=== PATIENT | male | born 1945 | race Two or more races ===

== ENCOUNTER 2024-10-17 07:05 | Day surgery (SDC) | payer OTHER ==
[2024-10-17] MEDS ORDERED: DIPHENHYDRAMINE HCL 50 MG/ML VIAL 1ML IV ONE (09:00)
[2024-10-17] MEDS ORDERED: fentaNYL CITRATE 50 MCG/ML AMPUL IV PUSH ONE (09:00)
[2024-10-17] MEDS ORDERED: MIDAZOLAM HCL 2 MG/2 ML VIAL IV ONE (09:00)
== END 2024-10-17 11:00 | disposition home or self-care (01) ==
LOC: AMB-ENDOS 07:05
PROVIDERS: ATTEND Surgery
DX: D12.7 Benign neoplasm of rectosigmoid junction (principal); K57.30 Diverticulosis of large intestine without perforation or abscess without bleeding

== ENCOUNTER 2024-11-25 05:20 | Day surgery (SDC) | payer OTHER ==
[~2024-11-25] VITALS: Ht 243.8 cm; Wt 5.0 kg
[~2024-11-25 05:20] MED LIST: ATACAND16 MG; CARVEDILOL ER40 MG; PRILOSEC OTC20 MG PO
== END 2024-11-25 07:30 | disposition home or self-care (01) ==
LOC: CIR.AMB 05:20 → SURH 05:20 → O/R 05:20 → SURH 07:00 → CIR.AMB 07:30 → O/R 07:30 → SURH 12:15 → EDSTATUS 12:15
PROVIDERS: ATTEND Surgery
DX: C19 Malignant neoplasm of rectosigmoid junction (principal); Z53.09 Procedure and treatment not carried out because of other contraindication

== ENCOUNTER 2024-12-25 13:13 | Inpatient (IN) | payer OTHER ==
[~2024-12-25] VITALS: Ht 243.8 cm; Wt 67.1 kg
[2025-01-06] MEDS ORDERED: CEFTRIAXONE SODIUM 2,000 MG VIAL ONE (06:31)
[2025-01-06] MEDS ORDERED: METRONIDAZOLE/SODIUM CHLORIDE 500 MG/100 ML PIGGYBACK IV ONE (06:31)
[2025-01-06] MEDS ORDERED: BUPIVACAINE HCL/MPF 0.5% 30ML VIAL ONE (07:53)
[2025-01-06] MEDS ORDERED: LIDOCAINE HCL 1%/EPINEPHRINE 20ML VIAL IJ ONE (07:53)
[2025-01-06] MEDS ORDERED: SUGAMMADEX SODIUM 200 MG/2 ML VIAL IV ONE (09:32)
[2025-01-06] MEDS ORDERED: MORPHINE SULFATE 4 MG/ML CARTRIDGE IV PRN (15:30)
[2025-01-06] MEDS ORDERED: FUROsemide 20 MG/2 ML VIAL IV ONE (17:00)
[2025-01-06] MEDS ORDERED: ENALAPRILAT DIHYDRATE 1.25 MG/ML VIAL IV ONE (17:00)
[2025-01-07 07:04] LABS: HEMATOCRIT 44.4 % (39.0-48.0); HEMOGLOBIN 15.1 g/dL (13-16.00); MEAN CELL VOLUME 94.5 fL (80.0-100.00); MEAN CORPUSCULAR HEMOGLOBIN 32.2 pg (27.00-32.0); PLATELET COUNT 188 K/uL (150-450); RED CELL DISTRIBUTION WIDTH 12.8 % (11.5-14.5)
[2025-01-07 07:37] LABS: ALBUMIN 2.8 gm/dL (3.4-5.0); CALCIUM 8.8 mg/dL (8.5-10.1); CREATININE SERUM 0.99 mg/dL (0.70-1.30); GFR 73.3; PHOSPHOROUS 3.9 mg/dL (2.5-4.9); POTASSIUM 3.62 mEq/L (3.5-5.1)
[2025-01-07] MEDS ORDERED: FAMOTIDINE/PF 20 MG/2 ML VIAL IV SCH (09:00)
[2025-01-07] MEDS ORDERED: ENOXAPARIN SODIUM 40 MG/0.4 ML SYRINGE SUBCUTANEO SCH ×2 (09:00→17:00)
[2025-01-07] MEDS ORDERED: TAMSULOSIN HCL 0.4 MG CAP PO ONE (10:32)
[2025-01-07] MEDS ORDERED: HYDROCHLOROTHIAZIDE 12.5 MG CAPSULE PO ONE (10:32)
[2025-01-07] MEDS ORDERED: ACETAMINOPHEN 500 MG GEL..CAP PO ONE (10:32)
[2025-01-07] MEDS ORDERED: CANDESARTAN CILEXETIL 32 MG TABLET PO ONE (10:32)
[2025-01-07] MEDS ORDERED: CARVEDILOL 12.5 MG TABLET PO ONE (10:32)
[2025-01-07] MEDS ORDERED: FAMOTIDINE/PF 20 MG/2 ML VIAL ONE (10:33)
[2025-01-07] MEDS ORDERED: ENOXAPARIN SODIUM 40 MG/0.4 ML SYRINGE SUBCUTANEO ONE (10:33)
[2025-01-07] MEDS ORDERED: ENALAPRILAT DIHYDRATE 1.25 MG/ML VIAL IV PRN (11:00)
[2025-01-07] MEDS ORDERED: ALBUTEROL SULFATE 3 ML/2.5 MG AMPUL.NEB IH SCH (12:00)
[2025-01-07] MEDS ORDERED: ONDANSETRON HCL 2 MG/ML VIAL IV PRN (12:30)
[2025-01-07] MEDS ORDERED: ACETAMINOPHEN 500 MG GEL..CAP PO SCH (14:00)
[2025-01-07 16:00] VITALS: BP 153/76; O2SAT 96
[2025-01-07] MEDS ORDERED: TAMSULOSIN HCL 0.4 MG CAP PO SCH (17:00)
[2025-01-07] MEDS ORDERED: GABAPENTIN 300 MG CAPSULE PO SCH (17:00)
[2025-01-07] MEDS ORDERED: CARVEDILOL 12.5 MG TABLET PO SCH (21:00)
[2025-01-08 01:06] VITALS: BP 103/60; O2SAT 96
[2025-01-08 07:47] LABS: HEMATOCRIT 47.4 % (39.0-48.0); MEAN CELL VOLUME 95.4 fL (80.0-100.00); MEAN CORPUSCULAR HEMOGLOBIN 32.1 pg (27.00-32.0); MEAN CORPUSCULAR HGB CONC 33.7 g/dl (32.0-36.0); PLATELET COUNT 215 K/uL (150-450); RED BLOOD COUNT 4.98 M/uL (4.00-6.00); RED CELL DISTRIBUTION WIDTH 13.2 % (11.5-14.5)
[2025-01-08] MEDS ORDERED: PIPERACILLIN/TAZOBACTAM SODIUM 3.375 GM in DEXTROSE 5 % IN WATER 100 ML IV SCH (07:54)
[2025-01-08 08:10] LABS: CALCIUM 9.1 mg/dL (8.5-10.1); CREATININE SERUM 1.15 mg/dL (0.70-1.30); GFR 61.66; MAGNESIUM 1.5 mg/dL (1.8-2.4); PHOSPHOROUS 3.1 mg/dL (2.5-4.9); POTASSIUM 3.75 mEq/L (3.5-5.1)
[2025-01-08 08:52] VITALS: BP 126/71; O2SAT 96
[2025-01-08] MEDS ORDERED: CANDESARTAN CILEXETIL 32 MG TABLET PO SCH (09:00)
[2025-01-08] MEDS ORDERED: HYDROCHLOROTHIAZIDE 12.5 MG CAPSULE PO SCH (09:00)
[2025-01-08] MEDS ORDERED: MAGNESIUM SULFATE IN WATER 50 ML IV NR (09:15)
[2025-01-08 11:02] LABS: PH,URINE 5.5 (5.0-8.0); URINE APPEARANCE Clear; URINE BILIRRUBIN Negative (NEGATIVE); URINE BLOOD Large; URINE COLOR Yellow; URINE GLUCOSE Negative (NEGATIVE); URINE KETONE Trace (NEGATIVE); URINE LEUKOCYTE Negative; URINE NITRATE Negative; URINE PROTEIN 30 (NEGATIVE); URINE UROBILINOGEN 0.2 E.U./dl
[2025-01-08 11:06] LABS: URINE EPITHELIAL CELLS 6.1 uL (0.0-38.8); URINE RBC 346.9 uL (0.0-20.8); URINE WBC 3.6 uL (0.0-23.2)
[2025-01-08 11:52] LABS: URINE BACTERIA 2.4 uL (0.0-1933)
[2025-01-08 11:53] LABS: URINE CAST 0.73 uL (0.0-1.40)
[2025-01-08 16:27] VITALS: BP 103/64; O2SAT 95
[2025-01-08] MEDS ORDERED: DEXTROSE 5%-WATER 100ML IV.SOLN ONE (23:49)
[2025-01-09] VITALS: BP 92/59; O2SAT 96
[2025-01-09 07:05] LABS: HEMATOCRIT 40.5 % (39.0-48.0); HEMOGLOBIN 14.2 g/dL (13-16.00); MEAN CELL VOLUME 93.7 fL (80.0-100.00); MEAN CORPUSCULAR HEMOGLOBIN 32.9 pg (27.00-32.0); MEAN CORPUSCULAR HGB CONC 35.1 g/dl (32.0-36.0); PLATELET COUNT 190 K/uL (150-450); RED BLOOD COUNT 4.32 M/uL (4.00-6.00); RED CELL DISTRIBUTION WIDTH 13.6 % (11.5-14.5)
[2025-01-09 08:00] VITALS: BP 79/46; O2SAT 96
[2025-01-09 11:00] VITALS: BP 86/52; O2SAT 97
[2025-01-09] MEDS ORDERED: 0.9 % SODIUM CHLORIDE 1,000 ML IV SCH (11:15)
[2025-01-09 11:35] LABS: ALBUMIN 1.9 gm/dL (3.4-5.0); BILIRUBIN TOTAL 1.23 mg/dL (0.3-1.2); CALCIUM 8.6 mg/dL (8.5-10.1); CREATININE SERUM 2.73 mg/dL (0.70-1.30); GFR 22.74; GLOBULINA 3.3 G/DL (2.4-3.5); POTASSIUM 3.93 mEq/L (3.5-5.1); TOTAL PROTEIN 5.2 gm/dL (6.4-8.2)
[2025-01-09] MEDS ORDERED: DEXTROSE 50 % IN WATER 0.5 G/ML DISP.SYRIN IV ONE (14:00)
[2025-01-09] MEDS ORDERED: DEXTROSE 5 % AND 0.9 % NACL 1,000 ML IV SCH ×2 (14:00→18:30)
[2025-01-09 16:54] VITALS: BP 93/57; O2SAT 96
[2025-01-09] MEDS ORDERED: PIPERACILLIN/TAZOBACTAM SODIUM 2.25 GM VIAL IV SCH (17:00)
[2025-01-09] MEDS ORDERED: AA 5 % NO.6/DEXTROSE 15 % 2,000 ML CENTRAL SCH (17:00)
[2025-01-09] MEDS ORDERED: ENOXAPARIN SODIUM 30 MG/0.3 ML SYRINGE SUBCUTANEO SCH (17:00)
[2025-01-09] MEDS ORDERED: NOREPINEPHRINE BITARTRATE 8 MG in DEXTROSE 5 % IN WATER 250 ML IV SCH (18:15)
[2025-01-09] MEDS ORDERED: DEXTROSE 5 %-0.45 % SOD CHLORD 1,000 ML IV SCH (18:15)
[2025-01-09 21:45] VITALS: BP 101/55; O2SAT 98
[2025-01-09 23:00] VITALS: BP 115/71; O2SAT 98
[2025-01-10] VITALS (15 sets, daily range): BP systolic 99–142; BP diastolic 50–67; O2SAT 97–100
[2025-01-10 07:25] LABS: HEMATOCRIT 37.1 % (39.0-48.0); MEAN CELL VOLUME 94.8 fL (80.0-100.00); MEAN CORPUSCULAR HEMOGLOBIN 33.1 pg (27.00-32.0); PLATELET COUNT 206 K/uL (150-450); RED BLOOD COUNT 3.91 M/uL (4.00-6.00); RED CELL DISTRIBUTION WIDTH 13.7 % (11.5-14.5)
[2025-01-10 07:57] LABS: ALBUMIN 1.5 gm/dL (3.4-5.0); CALCIUM 7.8 mg/dL (8.5-10.1); CREATININE SERUM 2.51 mg/dL (0.70-1.30); GFR 25.05; MAGNESIUM 2.1 mg/dL (1.8-2.4); PHOSPHOROUS 2.8 mg/dL (2.5-4.9); POTASSIUM 3.8 mEq/L (3.5-5.1)
[2025-01-10] MEDS ORDERED: FAMOtidine 20 MG TABLET PO SCH (09:00)
[2025-01-10] MEDS ORDERED: PIPERACILLIN/TAZOBACTAM SODIUM 2.25 GM VIAL IV SCH (09:00)
[2025-01-10] MEDS ORDERED: FAMOTIDINE/PF 20 MG in 0.9 % SODIUM CHLORIDE 8 ML IV PUSH SCH (21:00)
[2025-01-11 04:00] VITALS: BP 143/63; O2SAT 100
[2025-01-11 07:18] VITALS: BP 160/69; O2SAT 98
[2025-01-11 08:11] LABS: HEMATOCRIT 36.4 % (39.0-48.0); HEMOGLOBIN 12.2 g/dL (13-16.00); MEAN CELL VOLUME 95.6 fL (80.0-100.00); MEAN CORPUSCULAR HGB CONC 33.5 g/dl (32.0-36.0); PLATELET COUNT 205 K/uL (150-450); RED BLOOD COUNT 3.81 M/uL (4.00-6.00); RED CELL DISTRIBUTION WIDTH 13.6 % (11.5-14.5)
[2025-01-11 08:37] LABS: ALBUMIN 1.6 gm/dL (3.4-5.0); BILIRUBIN TOTAL 0.52 mg/dL (0.3-1.2); CALCIUM 8.2 mg/dL (8.5-10.1); CREATININE SERUM 1.29 mg/dL (0.70-1.30); GFR 54.01; GLOBULINA 3.1 G/DL (2.4-3.5); MAGNESIUM 2.1 mg/dL (1.8-2.4); POTASSIUM 3.09 mEq/L (3.5-5.1); TOTAL PROTEIN 4.7 gm/dL (6.4-8.2)
[2025-01-11 09:12] LABS: PHOSPHOROUS 1.6 mg/dL (2.5-4.9)
[2025-01-11] MEDS ORDERED: POTASSIUM CHLORIDE IN WATER 100 ML IV NR (10:15)
[2025-01-11 11:59] VITALS: BP 136/64; O2SAT 100
[2025-01-11] MEDS ORDERED: POTASSIUM PHOS,M-BASIC-D-BASIC 15 MM in 0.9 % SODIUM CHLORIDE 250 ML IV NR (12:00)
[2025-01-11] MEDS ORDERED: LORazepam 2 MG/ML VIAL IV NR (12:17)
[2025-01-11] MEDS ORDERED: LORazepam 2 MG/ML VIAL IV PUSH STA (14:56)
[2025-01-11 15:24] VITALS: BP 158/78; O2SAT 100
[2025-01-11] MEDS ORDERED: LORazepam 2 MG/ML VIAL IV PRN (17:15)
[2025-01-11 20:00] VITALS: BP 157/67; O2SAT 100
[2025-01-11 23:00] VITALS: BP 171/73; O2SAT 100
[2025-01-12 04:00] VITALS: BP 167/69; O2SAT 100
[2025-01-12 07:12] VITALS: BP 153/69; O2SAT 99
[2025-01-12 07:24] LABS: HEMATOCRIT 35.3 % (39.0-48.0); HEMOGLOBIN 11.9 g/dL (13-16.00); MEAN CELL VOLUME 95.1 fL (80.0-100.00); MEAN CORPUSCULAR HGB CONC 33.6 g/dl (32.0-36.0); PLATELET COUNT 181 K/uL (150-450); RED BLOOD COUNT 3.71 M/uL (4.00-6.00); RED CELL DISTRIBUTION WIDTH 13.7 % (11.5-14.5)
[2025-01-12 07:46] LABS: INR 1.02; PARTIAL THROMBOPLASTIN TIME 28.8 SECONDS (22.0-34.0); PROTHROMBIN TIME 11.1 SECONDS (9.0-11.5)
[2025-01-12 08:04] LABS: ALBUMIN 1.6 gm/dL (3.4-5.0); BILIRUBIN TOTAL 0.75 mg/dL (0.3-1.2); CREATININE SERUM 1.05 mg/dL (0.70-1.30); GFR 68.49; GLOBULINA 3.1 G/DL (2.4-3.5); POTASSIUM 3.03 mEq/L (3.5-5.1); TOTAL PROTEIN 4.7 gm/dL (6.4-8.2)
[2025-01-12] MEDS ORDERED: THIAMINE HCL 100 MG TABLET PO SCH (09:00)
[2025-01-12] MEDS ORDERED: hydrALAZINE HCL 20 MG VIAL IV PRN (09:00)
[2025-01-12] MEDS ORDERED: FOLIC ACID 1 MG TABLET PO SCH (09:00)
[2025-01-12] MEDS ORDERED: POTASSIUM CHLORIDE 20MEQ/100ML H2O PB IV NR (09:30)
[2025-01-12 10:47] LABS: UREA CLEARANCE 50.8 ML/MIN
[2025-01-12 12:19] VITALS: BP 116/58; O2SAT 100
[2025-01-12 15:10] VITALS: BP 142/65; O2SAT 100
[2025-01-12] MEDS ORDERED: ENOXAPARIN SODIUM 40 MG/0.4 ML SYRINGE SUBCUTANEO SCH (17:00)
[2025-01-12 20:00] VITALS: BP 135/61; O2SAT 100
[2025-01-12] MEDS ORDERED: FUROsemide 20 MG/2 ML VIAL IV ONE (22:30)
[2025-01-12 23:44] VITALS: BP 159/70; O2SAT 99
[2025-01-13] VITALS (8 sets, daily range): BP systolic 103–160; BP diastolic 55–77; O2SAT 99–100
[2025-01-13 06:22] LABS: HEMATOCRIT 36.5 % (39.0-48.0); HEMOGLOBIN 12.4 g/dL (13-16.00); MEAN CELL VOLUME 94.2 fL (80.0-100.00); MEAN CORPUSCULAR HEMOGLOBIN 32.1 pg (27.00-32.0); MEAN CORPUSCULAR HGB CONC 34.1 g/dl (32.0-36.0); PLATELET COUNT 208 K/uL (150-450); RED BLOOD COUNT 3.87 M/uL (4.00-6.00); RED CELL DISTRIBUTION WIDTH 13.4 % (11.5-14.5)
[2025-01-13 06:56] LABS: ALBUMIN 1.8 gm/dL (3.4-5.0); BILIRUBIN TOTAL 0.78 mg/dL (0.3-1.2); CALCIUM 8.1 mg/dL (8.5-10.1); CREATININE SERUM 1.19 mg/dL (0.70-1.30); GFR 59.28; GLOBULINA 3.7 G/DL (2.4-3.5); TOTAL PROTEIN 5.5 gm/dL (6.4-8.2)
[2025-01-13 07:21] LABS: PHOSPHOROUS 1.4 mg/dL (2.5-4.9); POTASSIUM 2.97 mEq/L (3.5-5.1)
[2025-01-13 07:22] LABS: MAGNESIUM 1.1 mg/dL (1.8-2.4)
[2025-01-13] MEDS ORDERED: POTASSIUM CHLORIDE 20MEQ/100ML H2O PB IV SCH (08:00)
[2025-01-13] MEDS ORDERED: MAGNESIUM SULFATE IN WATER 50 ML IV NR (09:00)
[2025-01-13] MEDS ORDERED: THIAMINE HCL 100 MG/ML 2 ML VIAL IV SCH (09:00)
[2025-01-13] MEDS ORDERED: EMOLLIENT COMBINATION NO.92 2.5 OZ BOTTLE TOP SCH (09:00)
[2025-01-13 09:16] LABS: ABG PH 7.405 (7.35-7.45); ABG PO2 366.2 mmHg (80-100); ABG pCO2 34.2 mmHg (35-45); BASE EXCESS -2.9 mmol/l; BICARBONATE 20.9 mmol/l (23-25); SaO2 99.9 %
[2025-01-13 10:39] LABS: allen test SATISFACTORY; mode NON REBREATHING MASK; o2 100 %; puncture site RADIAL RIGHT
[2025-01-13] MEDS ORDERED: ALBUTEROL SULFATE 3 ML/2.5 MG AMPUL.NEB IH SCH (12:00)
[2025-01-13] MEDS ORDERED: SODIUM CHLORIDE 0.45 % 1,000 ML IV SCH (12:30)
[2025-01-13] MEDS ORDERED: DIATRIZOATE MEGLUMINE, SODIUM 30 ML BOTTLE PO NR (13:30)
[2025-01-13] MEDS ORDERED: POTASSIUM CHLORIDE IN WATER 100 ML IV NR (16:45)
[2025-01-13] MEDS ORDERED: POTASSIUM PHOS,M-BASIC-D-BASIC 15 MM in 0.9 % SODIUM CHLORIDE 250 ML IV ONE (20:00)
[2025-01-13] MEDS ORDERED: PANTOPRAZOLE SODIUM 40 MG/VIAL VIAL IV STA (23:16)
[2025-01-14 04:04] VITALS: BP 152/71; O2SAT 100
[2025-01-14 07:14] LABS: CALCIUM 8.8 mg/dL (8.5-10.1); CREATININE SERUM 1.65 mg/dL (0.70-1.30); GFR 40.65; MAGNESIUM 2.5 mg/dL (1.8-2.4); POTASSIUM 3.53 mEq/L (3.5-5.1)
[2025-01-14 07:26] VITALS: BP 144/71; O2SAT 100
[2025-01-14] MEDS ORDERED: LEVALBUTEROL HCL 1.25 MG/3 ML SOLUTION IH SCH (08:00)
[2025-01-14] MEDS ORDERED: LEVALBUTEROL HCL 1.25 MG/3 ML SOLUTION IH ONE (08:14)
[2025-01-14] MEDS ORDERED: DEXTROSE 5 % IN WATER 1,000 ML IV SCH (08:30)
[2025-01-14] MEDS ORDERED: 0.9 % SODIUM CHLORIDE 1,000 ML IV SCH (11:45)
[2025-01-14 12:00] VITALS: BP 158/62; O2SAT 100
[2025-01-14] MEDS ORDERED: LINEZOLID IN DEXTROSE 5% 600 MG/300 ML PIGGYBAG IV STA (13:56)
[2025-01-14] MEDS ORDERED: FLUCONAZOLE IN NACL,ISO-OSM 200 MG/100 ML PIGGYBAG IV STA (13:57)
[2025-01-14 16:02] VITALS: BP 148/74; O2SAT 100
[2025-01-14] MEDS ORDERED: SODIUM CHLORIDE 0.45 % 1,000 ML IV SCH (16:15)
[2025-01-14 20:23] VITALS: BP 145/71; O2SAT 100
[2025-01-14] MEDS ORDERED: LINEZOLID IN DEXTROSE 5% 300 ML IV SCH (21:00)
[2025-01-14 22:01] LABS: HEMATOCRIT 36.2 % (39.0-48.0); HEMOGLOBIN 12.2 g/dL (13-16.00); MEAN CELL VOLUME 93.2 fL (80.0-100.00); MEAN CORPUSCULAR HEMOGLOBIN 31.4 pg (27.00-32.0); MEAN CORPUSCULAR HGB CONC 33.6 g/dl (32.0-36.0); PLATELET COUNT 292 K/uL (150-450); RED BLOOD COUNT 3.88 M/uL (4.00-6.00); RED CELL DISTRIBUTION WIDTH 13.8 % (11.5-14.5)
[2025-01-15 04:00] VITALS: BP 164/89; O2SAT 100
[2025-01-15 06:46] LABS: HEMATOCRIT 36.9 % (39.0-48.0); HEMOGLOBIN 12.5 g/dL (13-16.00); MEAN CELL VOLUME 94.1 fL (80.0-100.00); MEAN CORPUSCULAR HEMOGLOBIN 31.9 pg (27.00-32.0); MEAN CORPUSCULAR HGB CONC 33.9 g/dl (32.0-36.0); PLATELET COUNT 299 K/uL (150-450); RED BLOOD COUNT 3.92 M/uL (4.00-6.00); RED CELL DISTRIBUTION WIDTH 13.4 % (11.5-14.5)
[2025-01-15 07:19] LABS: CALCIUM 8.6 mg/dL (8.5-10.1); CREATININE SERUM 0.89 mg/dL (0.70-1.30); GFR 82.88; PHOSPHOROUS 2.9 mg/dL (2.5-4.9); POTASSIUM 3.82 mEq/L (3.5-5.1)
[2025-01-15 07:44] LABS: C-REACTIVE PROTEIN 3.85 MG/DL (0.00-0.29); MAGNESIUM 1.3 mg/dL (1.8-2.4)
[2025-01-15 08:00] VITALS: BP 173/89; O2SAT 100
[2025-01-15] MEDS ORDERED: METHYLPREDNISOLONE SOD SUCC 40 MG VIAL ONE (08:21)
[2025-01-15] MEDS ORDERED: METHYLPREDNISOLONE SOD SUCC 40 MG VIAL IV STA (08:36)
[2025-01-15] MEDS ORDERED: FLUCONAZOLE IN NACL,ISO-OSM 100 ML IV SCH (09:00)
[2025-01-15 09:21] LABS: ABG PH 7.338 (7.35-7.45); ABG PO2 164.6 mmHg (80-100); ABG pCO2 43.7 mmHg (35-45); BASE EXCESS -2.9 mmol/l; SaO2 99.3 %; Tco2 24.3 mmol/l
[2025-01-15] MEDS ORDERED: METHYLPREDNISOLONE SOD SUCC 40 MG VIAL IV SCH (11:06)
[2025-01-15] MEDS ORDERED: MAGNESIUM SULFATE IN WATER 2 GM/50 ML PIGGYBAG IV NR (11:20)
[2025-01-15 12:00] VITALS: BP 161/88; O2SAT 100
[2025-01-15 12:54] LABS: allen test SATISFACTORY; mode NASAL CANNULA; o2 36 %; puncture site RADIAL LEFT
[2025-01-15] MEDS ORDERED: IPRATROPIUM/ALBUTEROL SULFATE 3 ML AMPUL.NEB IH SCH (13:00)
[2025-01-15 15:50] VITALS: BP 156/61; O2SAT 98
[2025-01-15] MEDS ORDERED: MIDAZOLAM HCL 2 MG/2 ML VIAL IV PUSH ONE (21:00)
[2025-01-15] MEDS ORDERED: fentaNYL CITRATE 50 MCG/ML AMPUL IV PUSH ONE (21:00)
[2025-01-15 23:39] VITALS: BP 144/73; O2SAT 100
[2025-01-16 04:05] VITALS: BP 148/79; O2SAT 100
[2025-01-16 07:39] VITALS: BP 132/59; O2SAT 100
[2025-01-16 11:38] LABS: HEMATOCRIT 29.7 % (39.0-48.0); HEMOGLOBIN 10.2 g/dL (13-16.00); MEAN CELL VOLUME 92.1 fL (80.0-100.00); MEAN CORPUSCULAR HEMOGLOBIN 31.5 pg (27.00-32.0); MEAN CORPUSCULAR HGB CONC 34.2 g/dl (32.0-36.0); PLATELET COUNT 246 K/uL (150-450); RED BLOOD COUNT 3.23 M/uL (4.00-6.00); RED CELL DISTRIBUTION WIDTH 13.6 % (11.5-14.5)
[2025-01-16 12:00] VITALS: BP 149/72; O2SAT 100
[2025-01-16 12:05] LABS: INR 1.12; PARTIAL THROMBOPLASTIN TIME 24.2 SECONDS (22.0-34.0); PROTHROMBIN TIME 12.1 SECONDS (9.0-11.5)
[2025-01-16] MEDS ORDERED: MEROPENEM 500 MG/VIAL VIAL IV SCH (14:00)
[2025-01-16 15:33] VITALS: O2SAT 100
[2025-01-16 15:46] LABS: ALBUMIN 1.8 gm/dL (3.4-5.0); CALCIUM 8.3 mg/dL (8.5-10.1); CREATININE SERUM 0.97 mg/dL (0.70-1.30); GFR 75.05; MAGNESIUM 1.7 mg/dL (1.8-2.4); POTASSIUM 3.44 mEq/L (3.5-5.1)
[2025-01-16 15:53] LABS: BILIRUBIN TOTAL 0.42 mg/dL (0.3-1.2); TOTAL PROTEIN 4.9 gm/dL (6.4-8.2)
[2025-01-16 16:04] LABS: PHOSPHOROUS 1.9 mg/dL (2.5-4.9)
[2025-01-16] MEDS ORDERED: POTASSIUM PHOS,M-BASIC-D-BASIC 3 MM/ML VIAL IV NR (16:15)
[2025-01-16] MEDS ORDERED: MAGNESIUM SULFATE IN WATER 50 ML IV NR (16:15)
[2025-01-16] MEDS ORDERED: POTASSIUM CHLORIDE 20MEQ/100ML H2O PB IV NR (16:15)
[2025-01-16 16:58] LABS: HEMATOCRIT 31.3 % (39.0-48.0); HEMOGLOBIN 10.5 g/dL (13-16.00); MEAN CELL VOLUME 93.3 fL (80.0-100.00); MEAN CORPUSCULAR HEMOGLOBIN 31.1 pg (27.00-32.0); MEAN CORPUSCULAR HGB CONC 33.3 g/dl (32.0-36.0); PLATELET COUNT 271 K/uL (150-450); RED BLOOD COUNT 3.36 M/uL (4.00-6.00); RED CELL DISTRIBUTION WIDTH 13.5 % (11.5-14.5)
[2025-01-16] MEDS ORDERED: FF) Daptomycin 500 MG/VIAL IV NR (17:00)
[2025-01-16 17:11] LABS: GLOBULINA 3.1 G/DL (2.4-3.5)
[2025-01-16] MEDS ORDERED: MIDAZOLAM HCL 2 MG/2 ML VIAL IV PUSH ONE (21:30)
[2025-01-16] MEDS ORDERED: fentaNYL CITRATE 50 MCG/ML AMPUL IV PUSH ONE (21:30)
[2025-01-16 22:00] VITALS: BP 157/72; O2SAT 100
[2025-01-16 22:01] LABS: RH POSITIVE
[2025-01-16 23:05] VITALS: BP 152/70; O2SAT 100
[2025-01-17 09:24] LABS: CALCIUM 7.7 mg/dL (8.5-10.1); CREATININE SERUM 0.82 mg/dL (0.70-1.30); GFR 91.1; MAGNESIUM 1.7 mg/dL (1.8-2.4); POTASSIUM 3.11 mEq/L (3.5-5.1)
[2025-01-17 10:04] LABS: HEMATOCRIT 29.3 % (39.0-48.0); HEMOGLOBIN 9.8 g/dL (13-16.00); MEAN CELL VOLUME 92.2 fL (80.0-100.00); MEAN CORPUSCULAR HGB CONC 33.6 g/dl (32.0-36.0); PLATELET COUNT 256 K/uL (150-450); RED BLOOD COUNT 3.17 M/uL (4.00-6.00); RED CELL DISTRIBUTION WIDTH 13.6 % (11.5-14.5)
[2025-01-17] MEDS ORDERED: POTASSIUM PHOS,M-BASIC-D-BASIC 45mM/15ml VIAL IV ONE (12:00)
[2025-01-17] MEDS ORDERED: MAGNESIUM SULFATE IN WATER 2 GM/50 ML PIGGYBAG IV ONE (12:00)
[2025-01-17] MEDS ORDERED: POTASSIUM CHLORIDE 20MEQ/100ML H2O PB IV ONE (12:00)
[2025-01-17 16:00] VITALS: BP 147/65; O2SAT 100
[2025-01-17] MEDS ORDERED: FUROsemide 20 MG/2 ML VIAL IV SCH ×2 (16:30→16:45)
[2025-01-17] MEDS ORDERED: AMINOCAPROIC ACID 250 MG/ML VIAL IV STA (16:31)
[2025-01-17] MEDS ORDERED: FF) Daptomycin 500 MG/VIAL IV SCH (17:00)
[2025-01-17] MEDS ORDERED: AMINOCAPROIC ACID 250 MG/ML VIAL IV ONE (17:00)
[2025-01-17 20:00] VITALS: BP 159/81; O2SAT 100
[2025-01-17] MEDS ORDERED: FAT EMULSIONS 250 ML IV SCH (21:00)
[2025-01-17 23:06] VITALS: BP 133/68; O2SAT 100
[2025-01-18 03:58] VITALS: BP 148/67; O2SAT 100
[2025-01-18 07:54] VITALS: BP 149/74; O2SAT 100
[2025-01-18 09:09] LABS: HEMATOCRIT 37.3 % (39.0-48.0); HEMOGLOBIN 12.7 g/dL (13-16.00); MEAN CELL VOLUME 90.9 fL (80.0-100.00); MEAN CORPUSCULAR HEMOGLOBIN 30.9 pg (27.00-32.0); PLATELET COUNT 256 K/uL (150-450); RED BLOOD COUNT 4.11 M/uL (4.00-6.00); RED CELL DISTRIBUTION WIDTH 14.2 % (11.5-14.5)
[2025-01-18 09:47] LABS: CALCIUM 7.6 mg/dL (8.5-10.1); CREATININE SERUM 0.66 mg/dL (0.70-1.30); GFR 117.03; MAGNESIUM 1.7 mg/dL (1.8-2.4)
[2025-01-18 10:05] LABS: POTASSIUM 2.83 mEq/L (3.5-5.1)
[2025-01-18 10:06] LABS: PHOSPHOROUS 1.2 mg/dL (2.5-4.9)
[2025-01-18] MEDS ORDERED: MAGNESIUM SULFATE IN WATER 50 ML IV NR (11:00)
[2025-01-18 12:00] VITALS: BP 137/66; O2SAT 93
[2025-01-18] MEDS ORDERED: POTASSIUM CHLORIDE 20MEQ/100ML H2O PB IV SCH (13:00)
[2025-01-18 15:38] VITALS: BP 148/67; O2SAT 100
[2025-01-18] MEDS ORDERED: POTASSIUM PHOS,M-BASIC-D-BASIC 3 MM/ML VIAL IV ONE (19:00)
[2025-01-18] MEDS ORDERED: MEPERIDINE HCL/PF 25 MG/ML VIAL IV PRN (19:30)
[2025-01-18] MEDS ORDERED: HYOSCYAMINE SULFATE 0.125 MG TAB.SUBL SL PRN (19:30)
[2025-01-18 20:00] VITALS: BP 142/69; O2SAT 97
[2025-01-18] MEDS ORDERED: POTASSIUM CHLORIDE IN WATER 40 MEQ/100 ML PIGGYBAG IV NR (22:00)
[2025-01-19 04:00] VITALS: BP 145/62; O2SAT 100
[2025-01-19 06:23] LABS: HEMATOCRIT 38.6 % (39.0-48.0); HEMOGLOBIN 13.1 g/dL (13-16.00); MEAN CELL VOLUME 91.2 fL (80.0-100.00); MEAN CORPUSCULAR HEMOGLOBIN 30.9 pg (27.00-32.0); MEAN CORPUSCULAR HGB CONC 33.8 g/dl (32.0-36.0); PLATELET COUNT 312 K/uL (150-450); RED BLOOD COUNT 4.23 M/uL (4.00-6.00); RED CELL DISTRIBUTION WIDTH 14.3 % (11.5-14.5)
[2025-01-19 06:49] LABS: INR 1.06; PARTIAL THROMBOPLASTIN TIME 25.5 SECONDS (22.0-34.0); PROTHROMBIN TIME 11.5 SECONDS (9.0-11.5)
[2025-01-19] MEDS ORDERED: METHYLPREDNISOLONE SOD SUCC 40 MG VIAL IV NR (07:30)
[2025-01-19] MEDS ORDERED: DIPHENHYDRAMINE HCL 50 MG/ML VIAL 1ML IV NR (07:30)
[2025-01-19 07:46] LABS: CALCIUM 7.2 mg/dL (8.5-10.1); CHOL HDL RATIO 4.1 (0-5.0); CREATININE SERUM 0.65 mg/dL (0.70-1.30); GFR 119.11; MAGNESIUM 1.6 mg/dL (1.8-2.4); POTASSIUM 3.49 mEq/L (3.5-5.1)
[2025-01-19 08:05] LABS: PHOSPHOROUS 1.2 mg/dL (2.5-4.9)
[2025-01-19] MEDS ORDERED: ACETAMINOPHEN 500 MG GEL..CAP PO SCH (08:10)
[2025-01-19] MEDS ORDERED: DIATRIZOATE MEGLUMINE, SODIUM 30 ML BOTTLE PO NR (08:15)
[2025-01-19 08:16] VITALS: BP 172/101; O2SAT 100
[2025-01-19] MEDS ORDERED: ANIDULAFUNGIN 100 MG VIAL IV STA (13:31)
[2025-01-19 14:00] VITALS: BP 146/72; O2SAT 100
[2025-01-19 15:13] VITALS: BP 136/67; O2SAT 100
[2025-01-19] MEDS ORDERED: MAGNESIUM SULFATE IN WATER 2 GM/50 ML PIGGYBAG IV NR (16:30)
[2025-01-19] MEDS ORDERED: POTASSIUM PHOS,M-BASIC-D-BASIC 15 MM in 0.9 % SODIUM CHLORIDE 250 ML IV NR (18:00)
[2025-01-19 20:50] VITALS: BP 140/69; O2SAT 100
[2025-01-19 23:25] VITALS: BP 144/71; O2SAT 100
[2025-01-20] VITALS (8 sets, daily range): BP systolic 139–159; BP diastolic 65–77; O2SAT 94–100
[2025-01-20] MEDS ORDERED: ANIDULAFUNGIN 100 MG VIAL IV SCH (09:00)
[2025-01-20] MEDS ORDERED: LIDOCAINE HCL 1%/EPINEPHRINE 20ML VIAL IJ ONE (13:02)
[2025-01-20] MEDS ORDERED: BUPIVACAINE HCL/MPF 0.5% 30ML VIAL ONE (13:02)
[2025-01-20] MEDS ORDERED: POVIDONE-IODINE 118 ML BOTT TOP ONE (13:02)
[2025-01-20] MEDS ORDERED: MORPHINE SULFATE 4 MG/ML CARTRIDGE IV PRN (15:00)
[2025-01-21 04:00] VITALS: BP 156/75; O2SAT 100
[2025-01-21 07:35] VITALS: BP 155/63; O2SAT 100
[2025-01-21 10:56] LABS: HEMATOCRIT 37.6 % (39.0-48.0); HEMOGLOBIN 12.9 g/dL (13-16.00); MEAN CELL VOLUME 89.9 fL (80.0-100.00); MEAN CORPUSCULAR HGB CONC 34.4 g/dl (32.0-36.0); PLATELET COUNT 391 K/uL (150-450); RED BLOOD COUNT 4.18 M/uL (4.00-6.00); RED CELL DISTRIBUTION WIDTH 14.4 % (11.5-14.5)
[2025-01-21 11:38] LABS: CALCIUM 7.7 mg/dL (8.5-10.1); CREATININE SERUM 0.57 mg/dL (0.70-1.30); GFR 138.61; MAGNESIUM 1.5 mg/dL (1.8-2.4); POTASSIUM 3.3 mEq/L (3.5-5.1)
[2025-01-21 11:44] LABS: PHOSPHOROUS 1.8 mg/dL (2.5-4.9)
[2025-01-21 12:00] VITALS: BP 138/63; O2SAT 100
[2025-01-21] MEDS ORDERED: MAGNESIUM SULFATE IN WATER 50 ML IV NR (13:00)
[2025-01-21 15:45] VITALS: BP 138/63; O2SAT 100
[2025-01-21] MEDS ORDERED: POTASSIUM PHOS,M-BASIC-D-BASIC 15 MM in 0.9 % SODIUM CHLORIDE 250 ML IV ONE (16:00)
[2025-01-21 20:00] VITALS: BP 139/74; O2SAT 100
[2025-01-21] MEDS ORDERED: MELATONIN 5 MG TABLET PO SCH (21:00)
[2025-01-21] MEDS ORDERED: POTASSIUM CHLORIDE 20MEQ/100ML H2O PB IV NR (22:00)
[2025-01-21 23:18] VITALS: BP 144/71; O2SAT 100
[2025-01-22 04:00] VITALS: BP 138/66; O2SAT 100
[2025-01-22 06:20] LABS: HEMATOCRIT 36.7 % (39.0-48.0); HEMOGLOBIN 12.6 g/dL (13-16.00); MEAN CELL VOLUME 91.2 fL (80.0-100.00); MEAN CORPUSCULAR HEMOGLOBIN 31.3 pg (27.00-32.0); MEAN CORPUSCULAR HGB CONC 34.3 g/dl (32.0-36.0); PLATELET COUNT 385 K/uL (150-450); RED BLOOD COUNT 4.03 M/uL (4.00-6.00); RED CELL DISTRIBUTION WIDTH 14.3 % (11.5-14.5)
[2025-01-22 06:44] LABS: CALCIUM 8.1 mg/dL (8.5-10.1); CREATININE SERUM 0.58 mg/dL (0.70-1.30); GFR 135.85; MAGNESIUM 1.7 mg/dL (1.8-2.4); POTASSIUM 3.81 mEq/L (3.5-5.1)
[2025-01-22 08:00] VITALS: BP 142/69; O2SAT 100
[2025-01-22] MEDS ORDERED: MAGNESIUM SULFATE IN WATER 50 ML IV NR (08:00)
[2025-01-22] MEDS ORDERED: POTASSIUM PHOS,M-BASIC-D-BASIC 3 MM/ML VIAL IV ONE (10:00)
[2025-01-22 12:00] VITALS: BP 125/55; BP 137/68; O2SAT 100; O2SAT 97
[2025-01-22 21:10] VITALS: BP 133/43; BP 33/43; O2SAT 100
[2025-01-22 23:38] VITALS: BP 126/69; O2SAT 100
[2025-01-23 04:01] VITALS: BP 127/57; O2SAT 100
[2025-01-23 07:09] VITALS: BP 136/65; O2SAT 67
[2025-01-23 11:40] VITALS: BP 112/65; O2SAT 100
[2025-01-23 15:39] VITALS: BP 140/64; O2SAT 100
[2025-01-23 20:00] VITALS: BP 131/74; O2SAT 100
[2025-01-23 23:47] VITALS: BP 152/71; O2SAT 100
[2025-01-24 04:00] VITALS: BP 136/69; O2SAT 100
[2025-01-24 07:30] VITALS: BP 138/69; O2SAT 100
[2025-01-24 07:49] LABS: CALCIUM 8.1 mg/dL (8.5-10.1); CREATININE SERUM 0.54 mg/dL (0.70-1.30); GFR 147.53; POTASSIUM 3.3 mEq/L (3.5-5.1)
[2025-01-24 08:02] LABS: MAGNESIUM 1.4 mg/dL (1.8-2.4); PHOSPHOROUS 1.7 mg/dL (2.5-4.9)
[2025-01-24 09:33] LABS: BASO % 0.4 % (0.1-1.2); EOS # 0.24 (0.04-0.54); EOS % 1.7 % (0.7-7.0); HEMATOCRIT 34.8 % (40.1-51.0); HEMOGLOBIN 12.2 g/dL (13.7-17.5); LYMPH # 1.25 (1.18-3.74); LYMPH % 9.1 % (19.3-53.1); MEAN CORPUSCULAR HEMOGLOBIN 31.2 pg (25.6-32.2); MONO # 0.72 (0.24-0.82); MONO % 5.2 % (4.7-12.5); NEUT # 10.86 (1.56-6.13); NEUT % 79.2 % (34.0-71.1); PLATELET COUNT 420 K/uL (163-369); RED BLOOD COUNT 3.91 M/uL (4.63-6.08); RED CELL DISTRIBUTION WIDTH 13.2 % (11.6-14.4)
[2025-01-24] MEDS ORDERED: POTASSIUM PHOS,M-BASIC-D-BASIC 18 MM in 0.9 % SODIUM CHLORIDE 250 ML IV NR (10:00)
[2025-01-24 12:24] VITALS: BP 150/88; O2SAT 100
[2025-01-24 15:25] VITALS: BP 134/72; O2SAT 100
[2025-01-24 20:30] VITALS: BP 117/62; O2SAT 97
[2025-01-24 23:39] VITALS: BP 143/63; O2SAT 100
[2025-01-25] VITALS (7 sets, daily range): BP systolic 117–144; BP diastolic 67–93; O2SAT 90–100
[2025-01-26] VITALS (9 sets, daily range): BP systolic 116–122; BP diastolic 67–81; O2SAT 96–100
[2025-01-27] VITALS (10 sets, daily range): BP systolic 115–125; BP diastolic 66–85; O2SAT 95–100
[2025-01-27 07:06] LABS: BASO % 0.6 % (0.1-1.2); EOS # 0.15 (0.04-0.54); EOS % 1.5 % (0.7-7.0); HEMATOCRIT 38.3 % (40.1-51.0); LYMPH # 1.34 (1.18-3.74); LYMPH % 13.8 % (19.3-53.1); MEAN CORPUSCULAR HEMOGLOBIN 30.1 pg (25.6-32.2); MONO # 0.66 (0.24-0.82); MONO % 6.8 % (4.7-12.5); NEUT # 6.99 (1.56-6.13); NEUT % 71.9 % (34.0-71.1); PLATELET COUNT 386 K/uL (163-369); RED BLOOD COUNT 4.32 M/uL (4.63-6.08); RED CELL DISTRIBUTION WIDTH 12.9 % (11.6-14.4)
[2025-01-27 07:45] LABS: CALCIUM 8.9 mg/dL (8.5-10.1); CREATININE SERUM 0.75 mg/dL (0.70-1.30); GFR 100.98; MAGNESIUM 1.6 mg/dL (1.8-2.4); PHOSPHOROUS 3.1 mg/dL (2.5-4.9); POTASSIUM 5.17 mEq/L (3.5-5.1)
[2025-01-27 08:03] LABS: C-REACTIVE PROTEIN 3.39 MG/DL (0.00-0.29)
[2025-01-27] MEDS ORDERED: 0.9 % SODIUM CHLORIDE 1,000 ML IV SCH (09:30)
[2025-01-27] MEDS ORDERED: MAGNESIUM SULFATE IN WATER 50 ML IV NR (09:30)
[2025-01-27] MEDS ORDERED: LINEZOLID 600 MG TABLET PO NR (10:15)
[2025-01-27] MEDS ORDERED: IPRATROPIUM/ALBUTEROL SULFATE 3 ML AMPUL.NEB IH SCH (13:00)
[2025-01-27] MEDS ORDERED: LINEZOLID 600 MG TABLET PO SCH (21:00)
[2025-01-28] VITALS (9 sets, daily range): BP systolic 122–149; BP diastolic 69–83; O2SAT 90–99
[2025-01-28] MEDS ORDERED: METHYLPREDNISOLONE SOD SUCC 125 MG VIAL IV SCH (09:30)
[2025-01-28 09:48] LABS: ALBUMIN 2.4 gm/dL (3.4-5.0); BILIRUBIN TOTAL 0.62 mg/dL (0.3-1.2); CREATININE SERUM 0.95 mg/dL (0.70-1.30); GFR 76.87; GLOBULINA 4.5 G/DL (2.4-3.5); MAGNESIUM 1.9 mg/dL (1.8-2.4); PHOSPHOROUS 3.5 mg/dL (2.5-4.9); POTASSIUM 4.57 mEq/L (3.5-5.1); TOTAL PROTEIN 6.9 gm/dL (6.4-8.2)
[2025-01-29] VITALS (9 sets, daily range): BP systolic 111–128; BP diastolic 69–76; O2SAT 90–100
[2025-01-29] MEDS ORDERED: AMINO ACIDS/PROTEIN HYDROLYS 30 ML BLIST.PACK PO SCH (09:34)
[2025-01-30] VITALS (9 sets, daily range): BP systolic 123–160; BP diastolic 72–82; O2SAT 90–100
[2025-01-30] MEDS ORDERED: THIAMINE HCL 100 MG TABLET PO SCH (09:00)
[2025-01-31] VITALS (9 sets, daily range): BP systolic 126–135; BP diastolic 71–76; O2SAT 90–99
[2025-01-31 08:16] LABS: CALCIUM 8.7 mg/dL (8.5-10.1); CREATININE SERUM 0.66 mg/dL (0.70-1.30); GFR 117.03; PHOSPHOROUS 2.7 mg/dL (2.5-4.9); POTASSIUM 4.38 mEq/L (3.5-5.1)
[2025-01-31 08:31] LABS: BASO % 0.7 % (0.1-1.2); EOS # 0.21 (0.04-0.54); HEMATOCRIT 35.3 % (40.1-51.0); LYMPH # 1.36 (1.18-3.74); LYMPH % 19.3 % (19.3-53.1); MEAN CORPUSCULAR HEMOGLOBIN 30.9 pg (25.6-32.2); MONO # 0.48 (0.24-0.82); MONO % 6.8 % (4.7-12.5); NEUT # 4.88 (1.56-6.13); NEUT % 69.2 % (34.0-71.1); PLATELET COUNT 280 K/uL (163-369); RED BLOOD COUNT 3.88 M/uL (4.63-6.08); RED CELL DISTRIBUTION WIDTH 12.5 % (11.6-14.4)
[2025-01-31 10:04] LABS: MAGNESIUM 1.3 mg/dL (1.8-2.4)
[2025-01-31 10:05] LABS: C-REACTIVE PROTEIN 0.95 MG/DL (0.00-0.29)
[2025-01-31] MEDS ORDERED: MAGNESIUM SULFATE IN WATER 4 GM/100 ML PIGGYBACK IV NR (10:45)
[2025-01-31] MEDS ORDERED: BENZONATATE 200 MG CAPSULE PO SCH (13:00)
[2025-02-01] VITALS (9 sets, daily range): BP systolic 118–132; BP diastolic 57–80; O2SAT 95–100
[2025-02-02] VITALS (7 sets, daily range): BP systolic 123–132; BP diastolic 72–82; O2SAT 90–100
[2025-02-03 00:14] VITALS: BP 105/66; O2SAT 100
[2025-02-03 01:22] VITALS: O2SAT 100
[2025-02-03 05:37] VITALS: O2SAT 96
[2025-02-03 08:00] VITALS: BP 126/69; O2SAT 95
[2025-02-03 09:00] VITALS: O2SAT 96
[2025-02-03 12:47] VITALS: O2SAT 90
[2025-02-03] MEDS ORDERED: BENZONATATE200 M1 PO (13:17)
[2025-02-03] MEDS ORDERED: FOLIC ACID1 MG PO (13:17)
[2025-02-03] MEDS ORDERED: IPRAT-ALBUT 0.5-3 ML IH (13:17)
[2025-02-03] MEDS ORDERED: PROTEINEX-18 LI30 ML PO (13:17)
[2025-02-03] MEDS ORDERED: CARVEDILOL12.5 MG PO (13:17)
[2025-02-03] MEDS ORDERED: TAMS0.4C PO (13:17)
[2025-02-03 13:23] LABS: COVID-19 AG NEGATIVE (NEGATIVE)
== END 2025-02-03 16:30 | DRG 329 ==
LOC: SURH 01-06 05:24 → O/R 01-06 05:24 → ICU 01-06 05:24 → SURG 01-06 07:00 → SURH 01-06 20:00 → ICU 01-09 22:16 → SURH 01-25 11:14
PROVIDERS: Internal Medicine; Internal Medicine Geriatric Medicine; Internal Medicine Infectious Disease; Surgery; ADMIT Surgery; ATTEND Surgery
PROC: 0DTN4ZZ Resection of Sigmoid Colon, Percutaneous Endoscopic Approach (ICD-10-PCS; principal; 2025-01-06)
PROC: 0DBP4ZZ Excision of Rectum, Percutaneous Endoscopic Approach (ICD-10-PCS; 2025-01-06)
PROC: 07BB4ZZ Excision of Mesenteric Lymphatic, Percutaneous Endoscopic Approach (ICD-10-PCS; 2025-01-06)
PROC: 8E0W4CZ Robotic Assisted Procedure of Trunk Region, Percutaneous Endoscopic Approach (ICD-10-PCS; 2025-01-06)
PROC: 0DJD8ZZ Inspection of Lower Intestinal Tract, Via Natural or Artificial Opening Endoscopic (ICD-10-PCS; 2025-01-06)
PROC: BT43ZZZ Ultrasonography of Bilateral Kidneys (ICD-10-PCS; 2025-01-09)
PROC: 0D9670Z Drainage of Stomach with Drainage Device, Via Natural or Artificial Opening (ICD-10-PCS; 2025-01-09)
PROC: 3E0F7GC Introduction of Other Therapeutic Substance into Respiratory Tract, Via Natural or Artificial Opening (ICD-10-PCS; 2025-01-09)
PROC: 02HV33Z Insertion of Infusion Device into Superior Vena Cava, Percutaneous Approach (ICD-10-PCS; 2025-01-10)
PROC: B548ZZA Ultrasonography of Superior Vena Cava, Guidance (ICD-10-PCS; 2025-01-10)
PROC: 3E0436Z Introduction of Nutritional Substance into Central Vein, Percutaneous Approach (ICD-10-PCS; 2025-01-10)
PROC: BW21YZZ Computerized Tomography (CT Scan) of Abdomen and Pelvis using Other Contrast (ICD-10-PCS; 2025-01-13)
PROC: BB24YZZ Computerized Tomography (CT Scan) of Bilateral Lungs using Other Contrast (ICD-10-PCS; 2025-01-13)
PROC: B020ZZZ Computerized Tomography (CT Scan) of Brain (ICD-10-PCS; 2025-01-13)
PROC: 0W9J40Z Drainage of Pelvic Cavity with Drainage Device, Percutaneous Endoscopic Approach (ICD-10-PCS; 2025-01-15)
PROC: 0W9J40Z Drainage of Pelvic Cavity with Drainage Device, Percutaneous Endoscopic Approach (ICD-10-PCS; 2025-01-16)
PROC: B246ZZZ Ultrasonography of Right and Left Heart (ICD-10-PCS; 2025-01-16)
PROC: 30233N1 Transfusion of Nonautologous Red Blood Cells into Peripheral Vein, Percutaneous Approach (ICD-10-PCS; 2025-01-17)
PROC: BB24YZZ Computerized Tomography (CT Scan) of Bilateral Lungs using Other Contrast (ICD-10-PCS; 2025-01-19)
PROC: BW21YZZ Computerized Tomography (CT Scan) of Abdomen and Pelvis using Other Contrast (ICD-10-PCS; 2025-01-19)
PROC: 0DNW4ZZ Release Peritoneum, Percutaneous Endoscopic Approach (ICD-10-PCS; 2025-01-20)
PROC: 0D1L4Z4 Bypass Transverse Colon to Cutaneous, Percutaneous Endoscopic Approach (ICD-10-PCS; 2025-01-20)
PROC: 0DQ84ZZ Repair Small Intestine, Percutaneous Endoscopic Approach (ICD-10-PCS; 2025-01-20)
PROC: 4A12X4Z Monitoring of Cardiac Electrical Activity, External Approach (ICD-10-PCS; 2025-01-25)
PROC: BW21YZZ Computerized Tomography (CT Scan) of Abdomen and Pelvis using Other Contrast (ICD-10-PCS; 2025-01-28)
DX: D12.7 Benign neoplasm of rectosigmoid junction (principal); K65.1 Peritoneal abscess; N17.9 Acute kidney failure, unspecified; J98.11 Atelectasis; T81.320A Disruption or dehiscence of gastrointestinal tract anastomosis, repair, or closure, initial encounter; L02.211 Cutaneous abscess of abdominal wall; B37.89 Other sites of candidiasis; K91.72 Accidental puncture and laceration of a digestive system organ or structure during other procedure; J44.1 Chronic obstructive pulmonary disease with (acute) exacerbation; R59.0 Localized enlarged lymph nodes; K63.5 Polyp of colon; K66.0 Peritoneal adhesions (postprocedural) (postinfection); R14.0 Abdominal distension (gaseous); N40.1 Benign prostatic hyperplasia with lower urinary tract symptoms; R33.8 Other retention of urine; I95.89 Other hypotension; D64.89 Other specified anemias; I12.9 Hypertensive chronic kidney disease with stage 1 through stage 4 chronic kidney disease, or unspecified chronic kidney disease; N18.9 Chronic kidney disease, unspecified; G31.89 Other specified degenerative diseases of nervous system; Z43.3 Encounter for attention to colostomy; B96.20 Unspecified Escherichia coli [E. coli] as the cause of diseases classified elsewhere; B95.2 Enterococcus as the cause of diseases classified elsewhere; Y83.2 Surgical operation with anastomosis, bypass or graft as the cause of abnormal reaction of the patient, or of later complication, without mention of misadventure at the time of the procedure; Z87.891 Personal history of nicotine dependence; Z88.6 Allergy status to analgesic agent; Z88.2 Allergy status to sulfonamides

== ENCOUNTER 2025-06-12 07:18 | Outpatient (CLI) | payer OTHER ==
[~2025-06-12 07:18] MED LIST changes: +BENZONATATE200 M1 PO; +CARVEDILOL12.5 MG PO; +FOLIC ACID1 MG PO; +IPRAT-ALBUT 0.5-3 ML IH; +PROTEINEX-18 LI30 ML PO; +TAMS0.4C PO
== END 2025-06-12 07:36 | disposition home or self-care (01) ==
LOC: TOM 07:18
PROVIDERS: ATTEND Surgery
DX: D12.7 Benign neoplasm of rectosigmoid junction (principal); D37.4 Neoplasm of uncertain behavior of colon; C19 Malignant neoplasm of rectosigmoid junction; R59.0 Localized enlarged lymph nodes
CPT/HCPCS: 74177; Q9965

== ENCOUNTER 2025-07-21 11:45 | Inpatient (IN) | payer OTHER ==
[~2025-07-21] VITALS: Ht 172.7 cm; Wt 68.0 kg
[2025-07-28] MEDS ORDERED: METRONIDAZOLE/SODIUM CHLORIDE 500 MG/100 ML PIGGYBACK IV ONE (07:13)
[2025-07-28] MEDS ORDERED: CEFTRIAXONE SODIUM 2,000 MG VIAL ONE (07:13)
[2025-07-28] MEDS ORDERED: LIDOCAINE HCL 1%/EPINEPHRINE 20ML VIAL IJ ONE (13:08)
[2025-07-28] MEDS ORDERED: BUPIVACAINE HCL/Mpf 0.5% 10ML VIAL ONE (13:08)
[2025-07-28] MEDS ORDERED: SUGAMMADEX SODIUM 200 MG/2 ML VIAL IV ONE (14:09)
[2025-07-28] MEDS ORDERED: DEXTROSE 50 % IN WATER 0.5 G/ML DISP.SYRIN IV PRN (14:15)
[2025-07-28] MEDS ORDERED: RINGERS SOLUTION,LACTATED 1,000 ML IV SCH (14:15)
[2025-07-28] MEDS ORDERED: OxyCODONE HCL 5 MG TABLET (ROXICODONE) PO PRN (14:15)
[2025-07-28] MEDS ORDERED: ONDANSETRON HCL 2 MG/ML VIAL IV PRN (14:15)
[2025-07-28] MEDS ORDERED: MORPHINE SULFATE 4 MG/ML VIAL IV PRN (14:15)
[2025-07-28] MEDS ORDERED: ENALAPRILAT DIHYDRATE 1.25 MG/ML VIAL IV PRN (14:30)
[2025-07-28] MEDS ORDERED: hydrALAZINE HCL 20 MG VIAL ONE (15:43)
[2025-07-28 15:50] LABS: BASO % 0.5 % (0.1-1.2); EOS # 0.55 (0.04-0.54); EOS % 9.3 % (0.7-7.0); LYMPH # 1.76 (1.18-3.74); LYMPH % 29.8 % (19.3-53.1); MEAN PLATELET VOLUME 11.50 fl (9.4-12.4); MONO # 0.56 (0.24-0.82); MONO % 9.5 % (4.7-12.5); NEUT # 2.98 (1.56-6.13); NEUT % 50.4 % (34.0-71.1); RED CELL DISTRIBUTION WIDTH 12.4 % (11.6-14.4)
[2025-07-28 16:21] LABS: BUN CREA RATIO 16.0 (7.0-25.0); CREATININE SERUM 1.2 mg/dL (0.70-1.30); GFR 58.55; GLUCOSE FASTING 116.0 mg/dL (65-100); OSMOLALITY SERUM 283.0 MOSM/KG (275-295)
[2025-07-28] MEDS ORDERED: FAMOTIDINE/PF 20 MG/2 ML VIAL ONE (16:36)
[2025-07-28] MEDS ORDERED: GABAPENTIN 300 MG CAPSULE PO SCH (17:00)
[2025-07-28] MEDS ORDERED: ALBUTEROL SULFATE 3 ML/2.5 MG AMPUL.NEB IH SCH (18:00)
[2025-07-28] MEDS ORDERED: ENALAPRILAT DIHYDRATE 1.25 MG/ML VIAL IV ONE (19:19)
[2025-07-28] MEDS ORDERED: ACETAMINOPHEN 500 MG GEL..CAP PO SCH (20:00)
[2025-07-28] MEDS ORDERED: FAMOTIDINE/PF 20 MG/2 ML VIAL IV PUSH SCH (21:00)
[2025-07-29] MEDS ORDERED: ACETAMINOPHEN 500 MG GEL..CAP PO ONE (00:41)
[2025-07-29 06:25] LABS: BASO % 0.4 % (0.1-1.2); EOS # 0.02 (0.04-0.54); EOS % 0.2 % (0.7-7.0); LYMPH # 1.53 (1.18-3.74); LYMPH % 15.0 % (19.3-53.1); MEAN PLATELET VOLUME 12.30 fl (9.4-12.4); MONO # 0.80 (0.24-0.82); MONO % 7.9 % (4.7-12.5); NEUT # 7.77 (1.56-6.13); NEUT % 76.2 % (34.0-71.1); RED CELL DISTRIBUTION WIDTH 12.7 % (11.6-14.4)
[2025-07-29 06:51] LABS: BUN CREA RATIO 15.0 (7.0-25.0); CREATININE SERUM 1.35 mg/dL (0.70-1.30); GFR 51.11; GLUCOSE FASTING 114.0 mg/dL (65-100); OSMOLALITY SERUM 285.0 MOSM/KG (275-295)
[2025-07-29] MEDS ORDERED: HYDROCHLOROTHIAZIDE 12.5 MG CAPSULE PO SCH (09:00)
[2025-07-29] MEDS ORDERED: CANDESARTAN CILEXETIL 32 MG TABLET PO SCH (09:00)
[2025-07-29] MEDS ORDERED: CARVEDILOL 12.5 MG TABLET PO STA (09:57)
[2025-07-29] MEDS ORDERED: ALBUTEROL SULFATE 3 ML/2.5 MG AMPUL.NEB IH ONE (12:24)
[2025-07-29] MEDS ORDERED: ENOXAPARIN SODIUM 40 MG/0.4 ML SYRINGE SUBCUTANEO SCH (17:00)
[2025-07-29] MEDS ORDERED: CARVEDILOL 12.5 MG TABLET PO SCH (21:00)
[2025-07-30 03:25] VITALS: BP 136/70; O2SAT 97
[2025-07-30] MEDS ORDERED: ENOXAPARIN SODIUM 40 MG/0.4 ML SYRINGE SUBCUTANEO SCH (09:00)
[2025-07-30 10:00] LABS: BASO % 0.6 % (0.1-1.2); EOS # 0.34 (0.04-0.54); EOS % 4.8 % (0.7-7.0); LYMPH # 1.07 (1.18-3.74); LYMPH % 15.1 % (19.3-53.1); MEAN PLATELET VOLUME 12.20 fl (9.4-12.4); MONO # 0.41 (0.24-0.82); MONO % 5.8 % (4.7-12.5); NEUT # 5.22 (1.56-6.13); NEUT % 73.6 % (34.0-71.1); RED CELL DISTRIBUTION WIDTH 12.8 % (11.6-14.4)
[2025-07-30 10:19] VITALS: BP 179/78; O2SAT 96
[2025-07-30 10:57] LABS: BUN CREA RATIO 12.0 (7.0-25.0); CREATININE SERUM 0.97 mg/dL (0.70-1.30); GFR 74.85; GLUCOSE FASTING 126.0 mg/dL (65-100); OSMOLALITY SERUM 283.0 MOSM/KG (275-295)
[2025-07-30] MEDS ORDERED: GABAPENTIN300 MG PO (11:42)
[2025-07-30] MEDS ORDERED: PAIN RELIEVER500 M2 PO (11:42)
== END 2025-07-30 13:01 | disposition home or self-care (01) | DRG 330 ==
LOC: O/R 07-28 06:00 → SURH 07-28 07:00 → MEDJ 07-29 15:50
PROVIDERS: Internal Medicine Geriatric Medicine; ADMIT Surgery; ATTEND Surgery
PROC: 0DBL4ZZ Excision of Transverse Colon, Percutaneous Endoscopic Approach (ICD-10-PCS; principal; 2025-07-28 07:00)
PROC: 3E0F7GC Introduction of Other Therapeutic Substance into Respiratory Tract, Via Natural or Artificial Opening (ICD-10-PCS; 2025-07-29)
DX: Z43.3 Encounter for attention to colostomy (principal); C19 Malignant neoplasm of rectosigmoid junction; D12.7 Benign neoplasm of rectosigmoid junction; K66.0 Peritoneal adhesions (postprocedural) (postinfection); D37.4 Neoplasm of uncertain behavior of colon; I10 Essential (primary) hypertension; J45.20 Mild intermittent asthma, uncomplicated; Z88.6 Allergy status to analgesic agent; Z88.2 Allergy status to sulfonamides